=== PATIENT | male | born 1970 | race Caucasian/White ===

== ENCOUNTER 2019-03-09 11:54 | Emergency (ER) | payer OTHER ==
--- NOTE | 2019-03-09 12:22 | ED ---
Abdominal Pain HPI - General Chief Complaint: Abdominal Pain Stated Complaint: Abd pain Time Seen by Provider: 03/09/19 12:04 Source: patient Mode of arrival: ambulatory Limitations: no limitations - History of Present Illness Initial Comments: 48yo female who denies any significant past medical history who is overall very poor historian presents emergency department for evaluation to rule out appendicitis. Patient states for "quite some time" greater than 2 months he has been dealing with chronic abdominal pain. He states is the left upper quadrant, burning pain that is almost constant. Patient states he has had extensive outpatient workup and they have not been able to find out what's wrong. Patient states he had an outpatient CT obtained that was prescribed by his primary care provider. There were findings consistent with possible acute appendicitis and patient was sent to the emergency department once results were dictated. Patient states he does not have any lower abdominal pain denies any periumbilical pain. Denies fevers. Patient states he does have occasional loose stools denies any increase in frequency. Patient denies any vomiting. Patient states he was surprised by this finding. Patient denies any chest pain or shortness of breath. Remaining ROS (-) Upon arrival patient appears well. No acute distress. - Related Data Previous Rx's Medication Instructions Recorded Calcium Carbonate/Vitamin D3 1 each PO DAILY 30 Days #30 tablet 03/09/19 [Calcium 500-Vit D3 600 Tablet] Allergies Allergy/AdvReac Type Severity Reaction Status Date / Time No Known Allergies Allergy Verified 03/09/19 12:02 Review of Systems ROS Statement: Those systems with pertinent positive or pertinent negative responses have been documented in the HPI. ROS Other: All systems not noted in ROS Statement are negative. Past Medical History Past Medical History: Hypertension History of Any Multi-Drug Resistant Organisms: None Reported Past Surgical History: No Surgical Hx Reported Past Psychological History: No Psychological Hx Reported Smoking Status: Current every day smoker Past Alcohol Use History: None Reported Past Drug Use History: Marijuana General Exam - General Exam Comments Initial Comments: General: The patient is awake and alert, in no distress, and does not appear acutely ill. Eye: +3 mm pupils are equal, round and reactive to light, extra-ocular movements are intact. No nystagmus. There is normal conjunctiva bilaterally. No signs of icterus. Ears, nose, mouth and throat: There are moist mucous membranes and no oral lesions. Neck: The neck is supple, there is no tenderness or JVD. Cardiovascular: There is a regular rate and rhythm. No murmur, rub or gallop is appreciated. Respiratory: Lungs are clear to auscultation, respirations are non-labored, breath sounds are equal. No wheezes, stridor, rales, or rhonchi. Gastrointestinal: Soft, non-distended, non-tender abdomen without masses or organomegaly noted. There is no rebound or guarding present. No CVA tenderness. Bowel sounds are unremarkable. No McBurney's tenderness. No palpable splenomegaly. Musculoskeletal: Normal ROM, no tenderness. Strength 5/5. Sensation intact. Radial pulses equal bilaterally 2+. Neurological: A&O x 3. CN II-XII intact, There are no obvious motor or sensory deficits. Coordination appears grossly intact. Speech is normal. Skin: Skin is warm and dry and no rashes or lesions are noted. (-) [place] Psych[facility]: Cooperative, appropriate mood & affect, normal judgment. Limitations: no limitations Course Vital Signs 03/09/19 03/09/19 11:59 15:10 Temperature 97.7 F 98.2 F Pulse Rate 78 77 Respiratory 20 18 Rate Blood Pressure 146/89 151/95 O2 Sat by Pulse 100 98 Oximetry Medical Decision Making - Medical Decision Making 48yo male presenting for abdominal pain greater than 2 months. Patient states he has had extensive outpatient workup. Patient states he did not know the cause. Patient has no reproducible abdominal pain on examination. Denies any chest pain or shortness of breath. Laboratory studies revealed hypokalemia there is no signs of QT prolongation on EKG, EKG revealed normal sinus rhythm. Patient denied any paresthesias he denies any cramping of the extremities weakness confusion seizures he denies any hallucinations cough. Appears to be asymptomatic. (-) Troponin negative. Patient CXR clear. CT revealed no acute appendicitis. (_) [place]eks sign. Blood pressure cuff is including approximately a minute and a half to 2 minutes there does not appear to be any muscle contractions of the hand or wrist. I discussed the case as well as laboratory studies and care plan with attending provider Dr. Tapia. After reviewing labs, complaint and imaging studies-he recommends discharge with calcium supplements and close PCP f/u for repeat laboratory studies. Return parameters were discussed at length as well as findings of hypocalcemia. he verbalized understanding of return primary since discharge appearing well - Lab Data Result diagrams: 03/09/19 12:15 03/09/19 13:13 Lab Results 03/09/19 03/09/19 03/09/19 Range/Units 12:15 12:15 12:57 WBC 15.7 H (3.8-10.6) k/uL RBC 5.43 (4.30-5.90) m/uL Hgb 16.6 (13.0-17.5) gm/dL Hct 48.5 (39.0-53.0) % MCV 89.2 (80.0-100.0) fL MCH 30.6 (25.0-35.0) pg MCHC 34.3 (31.0-37.0) g/dL RDW 13.0 (11.5-15.5) % Plt Count 338 (150-450) k/uL Neutrophils % 82 % Lymphocytes % 12 % Monocytes % 3 % Eosinophils % 1 % Basophils % 1 % Neutrophils # 12.8 H (1.3-7.7) k/uL Lymphocytes # 1.9 (1.0-4.8) k/uL Monocytes # 0.5 (0-1.0) k/uL Eosinophils # 0.2 (0-0.7) k/uL Basophils # 0.2 (0-0.2) k/uL Sodium (137-145) mmol/L Potassium (3.5-5.1) mmol/L Chloride (98-107) mmol/L Carbon Dioxide (22-30) mmol/L Anion Gap mmol/L BUN (9-20) mg/dL Creatinine (0.66-1.25) mg/dL Est GFR (CKD-EPI)AfAm (>60 ml/min/1.73 sqM) Est GFR (CKD-EPI)NonAf (>60 ml/min/1.73 sqM) Glucose (74-99) mg/dL Calcium (8.4-10.2) mg/dL Total Bilirubin (0.2-1.3) mg/dL AST (17-59) U/L ALT (21-72) U/L Alkaline Phosphatase (38-126) U/L Troponin I <0.012 (0.000-0.034) ng/mL Total Protein (6.3-8.2) g/dL Albumin (3.5-5.0) g/dL Lipase (23-300) U/L Urine Color Light Yellow Urine Appearance Clear (Clear) Urine pH 6.0 (5.0-8.0) Ur Specific [place] 1.004 (1.001-1.035) Urine Protein Negative (Negative) Urine Glucose (UA) Negative (Negative) Urine Ketones Negative (Negative) Urine Blood Negative (Negative) Urine Nitrite Negative (Negative) Urine Bilirubin Negative (Negative) Urine Urobilinogen <2.0 (<2.0) mg/dL Ur Leukocyte Esterase Negative (Negative) 03/09/19 Range/Units 13:13 WBC (3.8-10.6) k/uL RBC (4.30-5.90) m/uL Hgb (13.0-17.5) gm/dL Hct (39.0-53.0) % MCV (80.0-100.0) fL MCH (25.0-35.0) pg MCHC (31.0-37.0) g/dL RDW (11.5-15.5) % Plt Count (150-450) k/uL Neutrophils % % Lymphocytes % % Monocytes % % Eosinophils % % Basophils % % Neutrophils # (1.3-7.7) k/uL Lymphocytes # (1.0-4.8) k/uL Monocytes # (0-1.0) k/uL Eosinophils # (0-0.7) k/uL Basophils # (0-0.2) k/uL Sodium 142 (137-145) mmol/L Potassium 3.6 (3.5-5.1) mmol/L Chloride 112 H (98-107) mmol/L Carbon Dioxide 19 L (22-30) mmol/L Anion Gap 11 mmol/L BUN 8 L (9-20) mg/dL Creatinine 0.66 (0.66-1.25) mg/dL Est GFR (CKD-EPI)AfAm >90 (>60 ml/min/1.73 sqM) Est GFR (CKD-EPI)NonAf >90 (>60 ml/min/1.73 sqM) Glucose 70 L (74-99) mg/dL Calcium 7.5 L (8.4-10.2) mg/dL Total Bilirubin 0.7 (0.2-1.3) mg/dL AST 19 (17-59) U/L ALT 7 L (21-72) U/L Alkaline Phosphatase 40 (38-126) U/L Troponin I (0.000-0.034) ng/mL Total Protein 6.3 (6.3-8.2) g/dL Albumin 3.8 (3.5-5.0) g/dL Lipase 93 (23-300) U/L Urine Color Urine Appearance (Clear) Urine pH (5.0-8.0) Ur Specific [place] (1.001-1.035) Urine Protein (Negative) Urine Glucose (UA) (Negative) Urine Ketones (Negative) Urine Blood (Negative) Urine Nitrite (Negative) Urine Bilirubin (Negative) Urine Urobilinogen (<2.0) mg/dL Ur Leukocyte Esterase (Negative) Disposition Clinical Impression: Chronic abdominal pain, Leukocytosis, Hypocalcemia Disposition: HOME SELF-CARE Condition: Good Instructions (If sedation given, give patient instructions): Abdominal Pain (ED) Additional Instructions: Please use medication as discussed. Please follow-up with family doctor in the next 2 days, please re-draw labs including calcium. Please return to emergency room if the symptoms increase or worsen or for any other concerns. Prescriptions: Calcium Carbonate/Vitamin D3 [Calcium 500-Vit D3 600 Tablet] 1 each PO DAILY 30 Days #30 tablet Is patient prescribed a controlled substance at d/c from ED?: No Referrals: None,Stated [Primary Care Provider] - 1-2 days Time of Disposition: 14:53
[2019-03-09 12:39] LABS: Appearance,Urine Clear (Clear); Bilirubin,Urine Negative (Negative); Blood,Urine Negative (Negative); Color,Urine Light Yellow; Glucose,Urine (UA) Negative (Negative); Ketones,Urine Negative (Negative); Leukocyte Esterase,Urine Negative (Negative); Nitrite,Urine Negative (Negative); Protein,Urine Negative (Negative); Specific Gravity,Urine 1.004 (1.001-1.035); Urobilinogen,Urine <2.0 mg/dL (<2.0)
[2019-03-09 12:43] LABS: Basophils # (A) 0.2 k/uL (0-0.2); Basophils % (A) 1 %; Eosinophils # (A) 0.2 k/uL (0-0.7); Eosinophils % (A) 1 %; HCT 48.5 % (39.0-53.0); HGB 16.6 gm/dL (13.0-17.5); Lymphocytes # (A) 1.9 k/uL (1.0-4.8); Lymphocytes % (A) 12 %; MCH 30.6 pg (25.0-35.0); MCHC 34.3 g/dL (31.0-37.0); MCV 89.2 fL (80.0-100.0); Mean Platelet Volume 7.6; Monocytes # (A) 0.5 k/uL (0-1.0); Monocytes % (A) 3 %; Neutrophils # (A) 12.8 k/uL (1.3-7.7); Neutrophils % (A) 82 %; Platelet Count 338 k/uL (150-450); RBC 5.43 m/uL (4.30-5.90); WBC 15.7 k/uL (3.8-10.6)
--- NOTE | 2019-03-09 13:04 | CT ---
EXAMINATION TYPE: CT abdomen pelvis w con DATE OF EXAM: 03/09/2019 COMPARISON: None HISTORY: RLQ pain CT DLP: 569.7 mGycm CONTRAST: CT scan of the abdomen and pelvis is performed without Oral Contrast and with IV Contrast, patient in jected with 100 mL of Isovue 300. FINDINGS: LUNG BASES-: No visible nodule. No infiltrate. LIVER/GB: No calcified gallstones. No space occupying hepatic lesion. Biliary tree is of normal ca liber. PANCREAS: No inflammation. No distinct mass. SPLEEN: No splenic enlargement. No lesion seen. ADRENALS: No nodule. No thickening. KIDNEYS/BLADDER: No hydronephrosis. No nephrolithiasis. No distinct renal mass. Urinary bladder g rossly unremarkable. BOWEL: Normal appendix. Normal bowel caliber. No inflammation. GENITAL ORGANS: No gross abnormality. LYMPH NODES: No greater than 1cm abdominal or pelvic lymph nodes are appreciated. AORTA: No significant abnormality. OSSEOUS STRUCTURES: No significant abnormality is seen. OTHER: No significant additional abnormality is seen. IMPRESSION: 1. No acute process identified. Normal-appearing appendix.
[2019-03-09 13:30] LABS: African American GFR (CKD) >90 (>60 ml/min/1.73 sqM); Albumin 3.8 g/dL (3.5-5.0); Anion Gap 11 mmol/L; Blood Urea Nitrogen 8 mg/dL (9-20); Calcium 7.5 mg/dL (8.4-10.2); Carbon Dioxide 19 mmol/L (22-30); Chloride 112 mmol/L (98-107); Glucose 70 mg/dL (74-99); Sodium 142 mmol/L (137-145); Total Bilirubin 0.7 mg/dL (0.2-1.3); Total Protein 6.3 g/dL (6.3-8.2)
[2019-03-09 13:36] LABS: Potassium 3.6 mmol/L (3.5-5.1)
[2019-03-09 13:37] LABS: ALT 7 U/L (21-72); AST 19 U/L (17-59); Alkaline Phosphatase 40 U/L (38-126)
--- NOTE | 2019-03-09 14:43 | XR ---
EXAMINATION TYPE: XR chest 2V DATE OF EXAM: 03/09/2019 COMPARISON: NONE HISTORY: Chest and abdominal pain. TECHNIQUE: Frontal and lateral views of the chest are obtained. FINDINGS: There is no focal air space opacity, pleural effusion, or pneumothorax seen. The cardiac silhouette size is within normal limits. Underlying dextroconvex scoliotic curvature is seen. IMPRESSION: No acute cardiopulmonary process.
[2019-03-09 15:11] VITALS: BP 151/95; PULSE 77; RESP 18; TEMP 98.2
== END 2019-03-09 15:10 | disposition home or self-care (01) ==
LOC: EC 11:54
DX: E83.51 Hypocalcemia (principal); D72.829 Elevated white blood cell count, unspecified; G89.29 Other chronic pain; R10.12 Left upper quadrant pain; E87.6 Hypokalemia; F17.200 Nicotine dependence, unspecified, uncomplicated
CPT/HCPCS: 36415; 93005; 80053; 83690; 84484; 85025; 81003; 71046; 74177; 99284; Q9967